=== PATIENT | female | born 1970 | race Caucasian/White ===

== ENCOUNTER 2017-05-23 00:49 | Emergency (ER) | payer MEDICAID ==
[~2017-05-23] VITALS: Ht 175.3 cm; Wt 77.1 kg
[2017-05-23 01:04] VITALS: BP 100/60
--- NOTE | 2017-05-23 01:06 | NUR ---
PT AMBULATORY TO ER BED 10. PT BIB SELF C/O COUGH AND CHEST CONGESTION X 4 DAYS. PT PLACED ON [employer]PER[employer]. VSS/RESP EVEN UNLABORED/NAD NOTED/SKIN WARM AND DRY/DENIES N-V-D/AOX4. AWAITING MD LYN.
--- NOTE | 2017-05-23 01:20 | NUR ---
XRAY AT BEDSIDE.
[2017-05-23] MEDS ORDERED: ALBUTEROL FS 2.5 MG/3 ML VIAL.NEB NEB ONE (01:30)
[2017-05-23] MEDS ORDERED: GUAIFENESIN/D-METHORPHAN HB 5 ML UDC PO ONE (01:30)
[2017-05-23] MEDS ORDERED: GUAIFENESIN/D-METHORPHAN HB 5 ML UDC ONE (01:41)
[2017-05-23] MEDS ORDERED: ALBUTEROL FS 2.5 MG/3 ML VIAL.NEB ONE (01:44)
--- NOTE | 2017-05-23 01:44 | NUR ---
MEDICATED PER MD ORDERS.
--- NOTE | 2017-05-23 02:25 | NUR ---
PT LEFT WITHOUT D/C INSTRUCTIONS AND RX. MD AWARE.
== END 2017-05-23 02:27 | disposition left against medical advice (07) ==
LOC: ER 00:55
DX: J20.9 Acute bronchitis, unspecified (principal); D64.9 Anemia, unspecified; E03.9 Hypothyroidism, unspecified
CPT/HCPCS: 71045; 94640 ×2; 99284; A4606; Z7610

== ENCOUNTER 2018-04-20 12:32 | Emergency (ER) | payer MEDICAID ==
[~2018-04-20] VITALS: Ht 175.3 cm; Wt 85.7 kg
--- NOTE | 2018-04-20 12:45 | NUR ---
PT BIB SELF. COMP OF HAVING "BACK PAIN". NO SOB NOTED. NO ACUTE DISTRESS AT THIS TIME. PT AMBULATORY W.STEADY GAIT. AWAITING MD LYN.
[2018-04-20] MEDS ORDERED: KETOROLAC TROMETHAMINE 15 MG/ML VIAL ONE (12:57)
[2018-04-20] MEDS ORDERED: LORAZEPAM INJ 2 MG/ML VIAL ONE (12:58)
[2018-04-20] MEDS ORDERED: KETOROLAC TROMETHAMINE INJ 30 MG/ML VIAL IV ONE (13:00)
[2018-04-20] MEDS ORDERED: IV NS 0.9% 1,000 ML BAG IV ONE (13:00)
[2018-04-20] MEDS ORDERED: LORAZEPAM INJ 2 MG/ML VIAL IV ONE (13:00)
[2018-04-20 13:06] LABS: BASOPHILS % (AUTO) 0.3 % (0.0-2.0); EOSINOPHILS % (AUTO) 2.6 % (0.0-6.0); HEMATOCRIT 41 % (33-45); HEMOGLOBIN 13.8 g/dL (11.5-14.8); LYMPHOCYTES # (AUTO) 1.3 /CMM (0.8-4.8); LYMPHOCYTES % (AUTO) 23.6 % (20.0-44.0); MEAN CORPUSCULAR HGB CONC 34 g/dl (31.0-36.0); MEAN CORPUSCULAR VOLUME 95 fL (82-100); MONOCYTES # (AUTO) 0.5 /CMM (0.1-1.30); MONOCYTES % (AUTO) 8.4 % (2.0-12.0); NEUTROPHILS # (AUTO) 3.7 /CMM (1.8-8.9); NEUTROPHILS % (AUTO) 65.1 % (43.0-81.0); PLATELET COUNT (AUTO) 245 /CMM (150-450); RED BLOOD CELL COUNT(AUTO) 4.34 MIL/uL (4.0-5.2); WHITE BLOOD COUNT (AUTO) 5.6 K/uL (4.3-11.0)
[2018-04-20 13:24] LABS: CREATININE 0.9 mg/dL (0.6-1.3); POTASSIUM 3.8 mmol/L (3.5-5.1)
--- NOTE | 2018-04-20 13:39 | NUR ---
PT UNBLE TO URINATE AT THIS TIME. WILL TRY AGAIN IN A FEW MINUTES.
--- NOTE | 2018-04-20 14:08 | NUR ---
URINE COLLECTED AND SENT FOR ANALYSIS.
[2018-04-20 14:17] LABS: BILIRUBIN,URINE SMALL (NEGATIVE); BLOOD, URINE Moderate Ery/uL (NEGATIVE); KETONES,URINE Negative (NEGATIVE); LEUKOCYTE ESTERASE ,URINE Negative (NEGATIVE); NITRITE, URINE Negative (NEGATIVE); PH,URINE 5.5 (5.0-8.0); PROTEIN,URINE Negative (NEGATIVE); UGLUCOSE Negative (NEGATIVE)
[2018-04-20 14:22] LABS: APPEARANCE,URINE Hazy (CLEAR); COLOR,URINE Dark Yellow (YELLOW)
[2018-04-20 14:39] LABS: BACTERIA,URINE None seen /HPF (None Seen); SQUAMOUS EPITHELIAL CELL,UR Few /HPF (None Seen); WBC,URINE 0-3 /HPF (0-3)
--- NOTE | 2018-04-20 16:29 | NUR ---
Patient denies pain, peripheral IV removed. Patient discharged to home in stable condition. Written and verbal after care instructions given. Patient verbalizes understanding of instruction.
[2018-04-20 16:30] VITALS: BP 118/76
== END 2018-04-20 16:31 | disposition home or self-care (01) ==
LOC: ER 12:33
DX: M54.6 Pain in thoracic spine (principal); R31.9 Hematuria, unspecified; E03.9 Hypothyroidism, unspecified; D64.9 Anemia, unspecified
CPT/HCPCS: 36415; 74150; 80048; 81001; 83690; 84703; 85025; 85730; 96374; 96375; 99284; A4606; J1885; J2060; J7030; Z7610; 81000-TC